=== PATIENT | male | born 1995 | race Caucasian/White ===

== ENCOUNTER 2020-04-02 15:11 | Emergency (ER) | payer OTHER ==
[~2020-04-02] VITALS: Ht 180.3 cm; Wt 90.9 kg
[2020-04-02 15:12] VITALS: BP 129/69
[2020-04-02] MEDS ORDERED: LIDOCAINE 5% (LIDODERM) PATCH TD ONE (15:45)
[2020-04-02] MEDS ORDERED: KETOROLAC 60MG 2ML VIAL IM ONE (15:45)
[2020-04-02] MEDS ORDERED: methylPREDNISolone 125MG 2ML VIAL IM ONE (15:45)
[2020-04-02] MEDS ORDERED: methocarbamoL 750 MG TAB PO ONE (15:45)
[2020-04-02] MEDS ORDERED: LIDO5DIS41 TOP ×2 (16:30→16:41)
[2020-04-02] MEDS ORDERED: ROBA750T4 PO ×2 (16:30→16:41)
[2020-04-02] MEDS ORDERED: **NOTE PATIENT COMMENT** MISC XX SCH (21:00)
== END 2020-04-02 16:48 | disposition home or self-care (01) ==
LOC: M ED 15:11
DX: M54.5 Low back pain (principal)
CPT/HCPCS: 96372; 99282; J1885; J2930

== ENCOUNTER 2021-12-23 06:33 | Emergency (ER) | payer OTHER ==
[~2021-12-23] VITALS: Ht 180.3 cm; Wt 94.1 kg
[~2021-12-23 06:33] MED LIST: LIDO5DIS41 TOP; ROBA750T4 PO
[2021-12-23] MEDS ORDERED: KETOROLAC 30 MG/ML 1ML VIAL IV ONE (07:20)
[2021-12-23] MEDS ORDERED: NS 1,000 ML IV ONE (07:20)
[2021-12-23 07:46] LABS: BASO # 0.1 10^3/uL (0.0-0.2); BASO % 1.4 % (0.0-1.0); EOS # 0.2 10^3/uL (0.0-0.5); EOS % 4.6 % (0.0-3.0); HEMATOCRIT 44.7 % (42.0-52.0); HEMOGLOBIN 15.7 g/dl (13.5-17.5); LYMPH # 1.4 10^3/uL (1.5-5.0); LYMPH % 31.3 % (24.0-44.0); MEAN CORPUSCULAR HEMOGLOBIN 30.7 pg (27.0-33.0); MEAN CORPUSCULAR HGB CONC 35.1 g/dl (32.0-36.5); MEAN CORPUSCULAR VOLUME 87.5 fl (80.0-96.0); MONO # 0.5 10^3/uL (0.0-0.8); MONO % 10.6 % (2.0-8.0); NEUTROPHILS # 2.2 10^3/uL (1.5-8.5); NEUTROPHILS % 51.6 % (36.0-66.0); PLATELET COUNT, AUTOMATED 214 10^3/uL (150-450); RED BLOOD COUNT 5.11 10^6/uL (4.30-6.10); WHITE BLOOD COUNT 4.3 10^3/uL (4.0-10.0)
[2021-12-23] MEDS ORDERED: LIDOCAINE 5% (LIDODERM) PATCH TD ONE (09:10)
[2021-12-23] MEDS ORDERED: diazePAM 10MG/2ML SYRINGE (J3360 PER 5MG) IV ONE (09:10)
[2021-12-23] MEDS ORDERED: METH-1165 PO (10:27)
[2021-12-23] MEDS ORDERED: ASPE4PAD TOP (10:27)
[2021-12-23] MEDS ORDERED: NAPR-837 PO (10:27)
[2021-12-23 10:30] VITALS: BP 110/65
[2021-12-23] MEDS ORDERED: **NOTE PATIENT COMMENT** MISC XX ONE (21:00)
== END 2021-12-23 12:10 | disposition home or self-care (01) ==
LOC: M ED 06:33 → EDBD 06:33 → M ED 12:10
DX: R07.89 Other chest pain (principal)
CPT/HCPCS: 71046; 80047; 82550; 84484; 85025; 85379; 93005; 96361; 96374; 96375; 99284; J1885; J3360

== ENCOUNTER → 2022-05-27 | Outpatient (CLI) | payer OTHER ==
[~2022-05-27] MED LIST changes: +ASPE4PAD TOP; +METH-1165 PO; +NAPR-837 PO
== END ==
LOC: M WUC 11:43
PROVIDERS: ATTEND Physician Assistant
DX: M54.50 Low back pain, unspecified (principal)

== ENCOUNTER 2022-05-31 04:25 | Emergency (ER) | payer OTHER ==
[~2022-05-31] VITALS: Ht 180.3 cm; Wt 95.9 kg
[2022-05-31] MEDS ORDERED: IBUPROFEN 800 MG TAB PO ONE (04:45)
[2022-05-31 07:52] VITALS: BP 118/71
[2022-05-31] MEDS ORDERED: KETO10TAB PO (08:05)
[2022-05-31] MEDS ORDERED: METH-1165 PO (08:05)
== END 2022-05-31 08:18 | disposition home or self-care (01) ==
LOC: M ED 04:25
DX: S30.0XXA Contusion of lower back and pelvis, initial encounter (principal); W00.0XXA Fall on same level due to ice and snow, initial encounter; M51.26 Other intervertebral disc displacement, lumbar region; M51.37 Other intervertebral disc degeneration, lumbosacral region

== ENCOUNTER → 2023-03-02 | Outpatient (CLI) | payer OTHER ==
[~2023-03-02] MED LIST changes: +KETO10TAB PO
== END ==
LOC: M RAD 13:06
PROVIDERS: ATTEND Physician Assistant
DX: M79.661 Pain in right lower leg (principal); M54.50 Low back pain, unspecified

== ENCOUNTER → 2023-05-17 | Outpatient (CLI) | payer OTHER ==
[~2023-05-17] MED LIST changes: +ISOVUE-M 300 61% 15ML VIAL As Ordered ONE
[2023-05-17 09:10] VITALS: TEMP 98.1
[2023-05-17 09:30] LABS: BASO # 0.1 10^3/uL (0.0-0.2); BASO % 1.5 % (0.0-1.0); EOS # 0.3 10^3/uL (0.0-0.5); EOS % 4.6 % (0.0-3.0); HEMATOCRIT 44.2 % (42.0-52.0); HEMOGLOBIN 15.4 g/dl (13.5-17.5); LYMPH # 1.8 10^3/uL (1.5-5.0); LYMPH % 33.1 % (24.0-44.0); MEAN CORPUSCULAR HEMOGLOBIN 30.7 pg (27.0-33.0); MEAN CORPUSCULAR HGB CONC 34.8 g/dl (32.0-36.5); MONO # 0.5 10^3/uL (0.0-0.8); NEUTROPHILS # 2.8 10^3/uL (1.5-8.5); NEUTROPHILS % 51.4 % (36.0-66.0); PLATELET COUNT, AUTOMATED 198 10^3/uL (150-450); RED BLOOD COUNT 5.02 10^6/uL (4.30-6.10); WHITE BLOOD COUNT 5.4 10^3/uL (4.0-10.0)
[2023-05-17 09:42] LABS: INR 1.06; PROTHROMBIN TIME 13.5 SECONDS (12.5-14.5)
[2023-05-17 12:15] VITALS: BP 120/66; O2SAT 97
== END ==
LOC: M IRPRO 09:01
PROVIDERS: ATTEND Physician Assistant
DX: M51.26 Other intervertebral disc displacement, lumbar region (principal)
CPT/HCPCS: 62284; 72131; 85025; 85610; Q9967

== ENCOUNTER 2023-05-21 11:48 | Emergency (ER) | payer OTHER ==
[~2023-05-21] VITALS: Ht 180.3 cm; Wt 99.1 kg
[~2023-05-21 11:48] MED LIST changes: -ISOVUE-M 300 61% 15ML VIAL As Ordered ONE
[2023-05-21 11:49] VITALS: TEMP 98.2
[2023-05-21] MEDS ORDERED: IBUP200C25 PO (11:55)
[2023-05-21 12:40] LABS: BASO # 0.1 10^3/uL (0.0-0.2); EOS # 0.2 10^3/uL (0.0-0.5); EOS % 4.3 % (0.0-3.0); HEMATOCRIT 44.3 % (42.0-52.0); HEMOGLOBIN 15.7 g/dl (13.5-17.5); LYMPH # 1.6 10^3/uL (1.5-5.0); LYMPH % 31.2 % (24.0-44.0); MEAN CORPUSCULAR HEMOGLOBIN 30.7 pg (27.0-33.0); MEAN CORPUSCULAR HGB CONC 35.4 g/dl (32.0-36.5); MEAN CORPUSCULAR VOLUME 86.7 fl (80.0-96.0); MONO # 0.4 10^3/uL (0.0-0.8); MONO % 7.8 % (2.0-8.0); NEUTROPHILS # 2.8 10^3/uL (1.5-8.5); NEUTROPHILS % 55.3 % (36.0-66.0); PLATELET COUNT, AUTOMATED 206 10^3/uL (150-450); RED BLOOD COUNT 5.11 10^6/uL (4.30-6.10); WHITE BLOOD COUNT 5.1 10^3/uL (4.0-10.0)
[2023-05-21 12:45] LABS: ERYTHROCYTE SEDIMENTATION RATE 5 mm/hr (0-15)
[2023-05-21] MEDS ORDERED: METOCLOPRAMIDE INJ 10MG/2ML VIAL IV ONE (12:55)
[2023-05-21] MEDS ORDERED: NS 1,000 ML IV ONE (12:55)
[2023-05-21] MEDS ORDERED: dexAMETHasone 20MG/5ML VIAL IV ONE (12:55)
[2023-05-21] MEDS ORDERED: diphenhydrAMINE 50MG/ML VIAL IV ONE (12:55)
[2023-05-21 13:10] LABS: ALBUMIN 4.2 G/DL (3.2-5.2); BILIRUBIN,DIRECT 0.2 MG/DL (<0.4); BILIRUBIN,TOTAL 0.6 MG/DL (0.3-1.2); MAGNESIUM LEVEL 1.9 MG/DL (1.8-2.4); TOTAL PROTEIN 7.1 G/DL (5.7-8.2)
[2023-05-21] MEDS ORDERED: ISOVUE-370 76% 100ML VIAL As Ordered ONE (13:10)
[2023-05-21] MEDS ORDERED: IBUP-1022 PO (15:00)
[2023-05-21 15:05] VITALS: BP 131/74; O2SAT 99
== END 2023-05-21 15:10 | disposition home or self-care (01) ==
LOC: M ED 11:48
DX: R10.9 Unspecified abdominal pain (principal); G43.909 Migraine, unspecified, not intractable, without status migrainosus; Z79.1 Long term (current) use of non-steroidal anti-inflammatories (NSAID)
CPT/HCPCS: 70450; 74177; 80047; 80076; 83690; 83735; 85025; 85652; 96361; 96374; 99283; J1100; J1200; J2765; Q9967

== ENCOUNTER 2023-08-06 18:29 | Emergency (ER) | payer OTHER ==
[~2023-08-06] VITALS: Ht 180.3 cm; Wt 98.9 kg
[~2023-08-06 18:29] MED LIST changes: +IBUP-1022 PO; +IBUP200C25 PO
[2023-08-06] MEDS: NAPROXEN 250 MG TAB PO ONE (19:23)
[2023-08-06] MEDS: BACITRACIN OINTMENT 30GM TUBE TOP ONE (19:23)
[2023-08-06 20:31] VITALS: BP 133/85; TEMP 97.6; O2SAT 99
== END 2023-08-06 20:33 | disposition home or self-care (01) ==
LOC: M ED 18:29
DX: S30.0XXA Contusion of lower back and pelvis, initial encounter (principal); W55.12XA Struck by horse, initial encounter; M54.50 Low back pain, unspecified; M51.36 Other intervertebral disc degeneration, lumbar region; Y92.9 Unspecified place or not applicable; Y93.89 Activity, other specified; Y99.9 Unspecified external cause status; Z79.1 Long term (current) use of non-steroidal anti-inflammatories (NSAID)

== ENCOUNTER 2024-01-20 10:59 | Day surgery (SDC) | payer OTHER ==
[~2024-01-20] VITALS: Ht 180.3 cm; Wt 85.6 kg
[~2024-01-20 10:59] MED LIST changes: +AMPH1CAP4 PO; +AMPH1TAB2 PO; +OMEG10002 PO; +POLY510P14 PO; +PROC1AER16
[2024-01-20] MEDS: LR 1,000 ML IV SCH (11:44)
[2024-01-20] MEDS ORDERED: MIDAZOLAM INJ 2MG/2ML VIAL As Ordered ONE (12:00)
[2024-01-20] MEDS ORDERED: fentaNYL 100 MCG/2 ML INJECTION As Ordered ONE (12:00)
[2024-01-20] MEDS ORDERED: propofoL 200 MG/20 ML VIAL As Ordered ONE (12:02)
[2024-01-20] MEDS ORDERED: LIDOCAINE 2% 100MG/5ML SDV (FOR ANES.) As Ordered ONE (12:03)
[2024-01-20] MEDS ORDERED: TRANEXAMIC ACID 100 MG/ML 10ML VIAL As Ordered ONE (12:24)
[2024-01-20] MEDS: ceFAZolin SOD 2 GM in IV 1 EA IV ONE (12:40)
[2024-01-20] MEDS: TRANEXAMIC ACID 100 MG/ML 10ML VIAL IV ONE (12:45)
[2024-01-20] MEDS ORDERED: ONDANSETRON 4MG 2ML VIAL As Ordered ONE (12:50)
[2024-01-20] MEDS ORDERED: KETOROLAC 60MG 2ML VIAL As Ordered ONE (12:50)
[2024-01-20] MEDS ORDERED: ACETAMINOPHEN 1000MG 100ML IV BAG As Ordered ONE (12:52)
[2024-01-20] MEDS ORDERED: fentaNYL 100 MCG/2 ML INJECTION IV PRN (13:50)
[2024-01-20] MEDS ORDERED: LR 1,000 ML IV SCH (13:50)
[2024-01-20] MEDS ORDERED: HYDROMORPHONE HCL 0.5 MG/ 0.5 ML SYRINGE IV PRN (13:50)
[2024-01-20] MEDS ORDERED: oxyCODONE 5MG TAB PO PRN (13:50)
[2024-01-20] MEDS ORDERED: ONDANSETRON 4MG 2ML VIAL IV PRN (13:50)
[2024-01-20 15:13] VITALS: BP 116/66; TEMP 97.5; O2SAT 100
== END 2024-01-20 15:26 | disposition home or self-care (01) ==
LOC: M SDC 10:59
PROVIDERS: ATTEND Orthopaedic Surgery
DX: M79.661 Pain in right lower leg (principal); Z18.10 Retained metal fragments, unspecified; F90.9 Attention-deficit hyperactivity disorder, unspecified type; F41.9 Anxiety disorder, unspecified; F32.A Depression, unspecified; Z79.899 Other long term (current) drug therapy
CPT/HCPCS: 20520; 76000; C9290; J0131; J0665; J0690; J1100; J1885; J2250; J2405; J3010